=== PATIENT | female | born 1960 | race Hispanic/Latino ===

== ENCOUNTER → 2024-10-25 | Day surgery (SDC) | payer OTHER ==
[2024-10-15 15:42] LABS: BASOPHILS % 0.1 % (0.0-1.0); EOSINOPHILS % 2.1 % (0.0-6.0); LYMPHOCYTES % 31.0 % (18.0-39.1); MONOCYTES % 6.1 % (4.4-11.3); NEUTROPHILS % 60.2 % (38.7-80.0); RED CELL DISTRIBUTION WIDTH 12.5 % (11.7-14.4)
[2024-10-15 16:03] LABS: EST GLOMERULAR FILTRATION RATE 29.0 ML/MIN (>=60)
[~2024-10-25] MED LIST: ACETAMINOPHEN 1000 MG/100 ML 100 ML IV ONE; ACTOPLUS MET 11 EAC1 PO; CALCIUM CARBON500 MG PO; CRESTOR40 MG PO; DEXAMETHASONE SOD PHOS INJ 4 MG/ML SDV ONE; EPHEDRINE SULFATE INJ 50 MG/ML VIAL ONE; FAMOTIDINE 20 MG/2 ML VIAL IV ONE; FENOFIBRATE145 MG PO; FENTANYL CITRATE/PF 100MCG/2 ML INJ ONE; HYDROCODONE/APAP 7.5MG-325MG 1 EA TAB ONE; IBANDRONATE SO150 MG PO; IRON PO; KETOROLAC TROMETHAMINE 30 MG/ML VIAL ONE; LACTATED RINGER'S 1,000 ML ONE; LIDOCAINE HCL 2% LOCAL INJ 5 ML SDV VIAL INJ ONE; LOSARTAN POTASS25 MG PO; MIDAZOLAM HCL 2 MG/2 ML VIAL ONE; OMEGA 3 1,0001 EACH PO; ONDANSETRON HCL INJ 2MG/ML 2ML 2 MG/ML VIAL ONE; PROPOFOL IV EMULSION 10 MG/ML 20 ML VIAL ONE; SEVOFLURANE INHAL SOLN 250 ML PEN BTL ONE; TRAZODONE HCL100 MG PO; VIT D3 PO
[2024-10-25 14:10] VITALS: BP 168/75; PULSE 94; RESP 16; O2SAT 99
== END | disposition home or self-care (01) ==
LOC: NM 06:41
PROVIDERS: ATTEND Surgery
DX: C50.411 Malignant neoplasm of upper-outer quadrant of right female breast (principal); Z17.0 Estrogen receptor positive status [ER+]; Z17.21 Progesterone receptor positive status; E11.9 Type 2 diabetes mellitus without complications; I10 Essential (primary) hypertension; E78.5 Hyperlipidemia, unspecified; D64.9 Anemia, unspecified; F32.A Depression, unspecified; Z01.812 Encounter for preprocedural laboratory examination; Z01.818 Encounter for other preprocedural examination; Z79.84 Long term (current) use of oral hypoglycemic drugs; Z79.899 Other long term (current) drug therapy
CPT/HCPCS: 36415; 71046; 78195; 80053; 82948; 85025; 88304; 88307; 88342; 93005; A9520; J1100; J1308; J1885; J2003; J2250; J2405

== ENCOUNTER → 2024-11-22 | Day surgery (SDC) | payer OTHER ==
[2024-11-19 15:40] LABS: BASOPHILS % 0.1 % (0.0-1.0); EOSINOPHILS % 1.5 % (0.0-6.0); LYMPHOCYTES % 28.6 % (18.0-39.1); MONOCYTES % 6.8 % (4.4-11.3); NEUTROPHILS % 62.3 % (38.7-80.0); RED CELL DISTRIBUTION WIDTH 13.4 % (11.7-14.4)
[2024-11-19 16:04] LABS: EST GLOMERULAR FILTRATION RATE 42.0 ML/MIN (>=60)
[~2024-11-22] MED LIST changes: -ACETAMINOPHEN 1000 MG/100 ML 100 ML IV ONE; -DEXAMETHASONE SOD PHOS INJ 4 MG/ML SDV ONE; -HYDROCODONE/APAP 7.5MG-325MG 1 EA TAB ONE; -KETOROLAC TROMETHAMINE 30 MG/ML VIAL ONE; -LACTATED RINGER'S 1,000 ML ONE; -MIDAZOLAM HCL 2 MG/2 ML VIAL ONE; +PHENYLEPHRINE HCL 1% 10 MG/ML VIAL ONE; -SEVOFLURANE INHAL SOLN 250 ML PEN BTL ONE
[2024-11-22] MEDS: LACTATED RINGER'S 1,000 ML ONE (08:48)
[2024-11-22] MEDS: ACETAMINOPHEN/CODEINE 300MG - 30MG TAB ONE (11:06)
[2024-11-22 11:59] VITALS: TEMP 97.2
[2024-11-22] MEDS: FENTANYL CITRATE/PF 100MCG/2 ML INJ ONE (12:17)
[2024-11-22 13:05] VITALS: BP 162/70; PULSE 85; RESP 16; O2SAT 97
== END | disposition home or self-care (01) ==
LOC: OR 08:05
PROVIDERS: ATTEND Surgery
DX: C50.911 Malignant neoplasm of unspecified site of right female breast (principal); D64.9 Anemia, unspecified; E11.9 Type 2 diabetes mellitus without complications; I10 Essential (primary) hypertension; E78.5 Hyperlipidemia, unspecified; M06.9 Rheumatoid arthritis, unspecified; M19.90 Unspecified osteoarthritis, unspecified site; F32.A Depression, unspecified; Z01.812 Encounter for preprocedural laboratory examination; Z79.84 Long term (current) use of oral hypoglycemic drugs; Z79.899 Other long term (current) drug therapy
CPT/HCPCS: 36415 ×2; 36561; 76000; 80053; 82948; 85025; 93005; C1751; J0690; J1308; J2003; J2371; J2405; J2704; J3010; J7121